=== PATIENT | female | born 1990 | race Two or more races ===

== ENCOUNTER 2021-05-01 19:17 | Emergency (ER) | payer BC ==
[~2021-05-01] VITALS: Ht 157.5 cm; Wt 56.7 kg
[2021-05-01] MEDS ORDERED: MEDROLPACK PO (22:38)
== END 2021-05-01 23:02 | disposition home or self-care (01) ==
LOC: ER 19:17
DX: L73.2 Hidradenitis suppurativa (principal); R21 Rash and other nonspecific skin eruption; L03.111 Cellulitis of right axilla